=== PATIENT | male | born 1990 | race Two or more races ===

== ENCOUNTER 2019-07-19 15:02 | Emergency (ER) | payer OTHER ==
[~2019-07-19] VITALS: Ht 170.2 cm; Wt 70.3 kg
[2019-07-19 15:15] VITALS: BP 121/78
[2019-07-19] MEDS ORDERED: KETOROLAC TROMETH 60MG/2ML VIAL IM ONE (16:15)
== END 2019-07-19 17:19 | disposition home or self-care (01) ==
LOC: EDBD 15:02 → ER 15:07
DX: S39.011A Strain of muscle, fascia and tendon of abdomen, initial encounter (principal); M54.5 Low back pain; X50.0XXA Overexertion from strenuous movement or load, initial encounter; Y93.89 Activity, other specified; Y92.89 Other specified places as the place of occurrence of the external cause; Y99.0 Civilian activity done for income or pay
CPT/HCPCS: 74176; 81002; 96372; 99284; J1885